=== PATIENT | female | born 2000 | race Caucasian/White ===

== ENCOUNTER 2020-06-22 13:14 | Emergency (ER) | payer BC ==
[~2020-06-22] VITALS: Ht 167.6 cm; Wt 54.5 kg
[2020-06-22 13:23] VITALS: BP 132/61; TEMP 99.1
[2020-06-22 14:17] LABS: STREP SCREEN NEGATIVE
[2020-06-22 15:36] VITALS: PULSE 98
== END 2020-06-22 15:32 | disposition home or self-care (01) ==
LOC: COL.ER 13:14
PROVIDERS: Nurse Practitioner
DX: B34.9 Viral infection, unspecified (principal); R22.1 Localized swelling, mass and lump, neck; Z20.828 Contact with and (suspected) exposure to other viral communicable diseases